=== PATIENT | male | born 1995 | race Two or more races ===

== ENCOUNTER 2019-12-04 13:49 | Emergency (ER) | payer OTHER, MEDICAID ==
[~2019-12-04] VITALS: Ht 193 cm; Wt 135.9 kg
[~2019-12-04 13:49] MED LIST: ALBU18HF2 INH; CLON-527 PO
[2019-12-04 13:55] VITALS: BP 152/85
[2019-12-04] MEDS ORDERED: ipratropium/albuterol 3ml nebule NEB ONE (14:40)
[2019-12-04] MEDS ORDERED: PRED20TA PO (15:30)
== END 2019-12-04 15:53 | disposition home or self-care (01) ==
LOC: ER 13:49
DX: J40 Bronchitis, not specified as acute or chronic (principal); F12.90 Cannabis use, unspecified, uncomplicated; Z79.899 Other long term (current) drug therapy
CPT/HCPCS: 71045; 94640; 94760; 99283

== ENCOUNTER 2022-10-24 18:26 | Emergency (ER) | payer MEDICAID, OTHER ==
[~2022-10-24] VITALS: Ht 193 cm; Wt 150.0 kg
[2022-10-24 18:29] VITALS: BP 147/94
[2022-10-24] MEDS ORDERED: CYCL-1 PO (18:57)
== END 2022-10-24 19:30 | disposition home or self-care (01) ==
LOC: ER 18:26
DX: S46.911A Strain of unspecified muscle, fascia and tendon at shoulder and upper arm level, right arm, initial encounter (principal); M62.830 Muscle spasm of back; F31.9 Bipolar disorder, unspecified; F12.90 Cannabis use, unspecified, uncomplicated; Z79.899 Other long term (current) drug therapy; X58.XXXA Exposure to other specified factors, initial encounter; Y93.89 Activity, other specified; Y92.89 Other specified places as the place of occurrence of the external cause; Y99.8 Other external cause status
CPT/HCPCS: 99283

== ENCOUNTER 2022-11-21 13:04 | Emergency (ER) | payer MEDICAID ==
[~2022-11-21] VITALS: Ht 193 cm; Wt 150.0 kg
[~2022-11-21 13:04] MED LIST changes: +CYCL-1 PO
[2022-11-21] MEDS ORDERED: dexamethasone sod phosphate 10mg/ml inj PO STA (14:20)
[2022-11-21] MEDS ORDERED: HYDROcodone/acetaminophen 5mg/325mg tablet PO ONE (14:20)
[2022-11-21] MEDS ORDERED: CIPR7.5D RIGHT EAR (14:23)
[2022-11-21] MEDS ORDERED: AMOX-117 PO (14:23)
[2022-11-21 14:42] VITALS: BP 138/87
== END 2022-11-21 14:44 | disposition home or self-care (01) ==
LOC: ER 13:05
DX: H60.501 Unspecified acute noninfective otitis externa, right ear (principal); H66.92 Otitis media, unspecified, left ear; F31.9 Bipolar disorder, unspecified; F12.10 Cannabis abuse, uncomplicated; Z79.899 Other long term (current) drug therapy
CPT/HCPCS: 99283; J1100

== ENCOUNTER 2023-01-01 12:13 | Emergency (ER) | payer MEDICAID ==
[~2023-01-01] VITALS: Ht 193 cm; Wt 150.0 kg
[~2023-01-01 12:13] MED LIST changes: +CIPR7.5D RIGHT EAR
[2023-01-01 12:21] VITALS: BP 149/101
== END 2023-01-01 17:45 | disposition left against medical advice (07) ==
LOC: ER 12:13
DX: K08.89 Other specified disorders of teeth and supporting structures (principal); Z53.21 Procedure and treatment not carried out due to patient leaving prior to being seen by health care provider

== ENCOUNTER 2024-12-07 15:19 | Emergency (ER) | payer MEDICAID ==
[~2024-12-07] VITALS: Ht 195.6 cm; Wt 163.6 kg
[2024-12-07 15:23] VITALS: BP 131/85; PULSE 129; RESP 16; TEMP 98.5; O2SAT 94
[2024-12-07] MEDS: ibuprofen tablet 400 MG TABLET PO ONE (16:22)
== END 2024-12-07 16:32 | disposition home or self-care (01) ==
LOC: ER 15:19
DX: S93.402A Sprain of unspecified ligament of left ankle, initial encounter (principal); F31.9 Bipolar disorder, unspecified; F12.90 Cannabis use, unspecified, uncomplicated; X50.0XXA Overexertion from strenuous movement or load, initial encounter; Y93.89 Activity, other specified; Y92.89 Other specified places as the place of occurrence of the external cause; Y99.8 Other external cause status
CPT/HCPCS: 73610; 99283; L4360